=== PATIENT | male | born 1995 | race Caucasian/White ===

== ENCOUNTER 2017-11-19 09:37 | Emergency (ER) | payer BC ==
[2017-11-19] MEDS ORDERED: ONDANSETRON 4 MG/2 ML VIAL ONE (10:49)
[2017-11-19] MEDS ORDERED: NA CHLORIDE 0.9% 1,000 ML ONE (10:50)
[2017-11-19] MEDS ORDERED: ACETAMINOPHEN 500 MG TAB ONE (10:56)
[2017-11-19 11:19] LABS: Albumin 4.3 g/dL (3.4-5.0); Bilirubin Direct 0.3 mg/dL (0-0.2); Bilirubin Total 1.8 mg/dL (0.2-1.0); Potassium 4.2 mmol/L (3.5-5.1); Protein, Total 7.5 g/dL (6.4-8.2)
[2017-11-19 12:03] LABS: Absolute Lymphocytes (CBC) 0.5 K/uL (0.7-4.9); Absolute Monocytes 0.3 K/uL (0.1-1.3); Absolute Neutrophil 7.8 K/uL (1.8-8.0); Basophils % 1.8 % (0-1.3); Eosinophils % 0.3 % (0-4.4); Hematocrit 47.8 % (39.6-49.0); Lymphocytes % 5.6 % (15.3-44.8); MCH 32.9 pg (27.0-35.0); MCV 93.9 fL (80-100); MPV 8.1 fL (7.6-11.3); Monocytes % 3.8 % (3.3-12.3); RBC Red Blood Cell Count 5.09 M/uL (4.33-5.43)
--- NOTE | 2017-11-19 14:02 | RAD REPORT ---
EXAM DESCRIPTION: CT - Abdomen Pelvis W Contrast - 11/19/2017 1:32 pm CLINICAL HISTORY: Abdominal pain. Vomiting and diarrhea COMPARISON: None. TECHNIQUE: Computed axial tomography of the abdomen and pelvis was obtained. 100 cc Isovue-300 is ad ministered intravenously. Oral contrast was given. All CT scans are performed using dose optimization technique as appropriate and may include automated exposure control or mA/KV adjustment according to patient size. FINDINGS: Mild fatty infiltration liver suspected. Spleen, pancreas, adrenals and right kidney appear unremarkable. A 3 millimeter nonobstructing left renal calculus is seen. The appendix is normal caliber. There is no evidence of diverticulitis IMPRESSION: 3 millimeter nonobstructing left renal calculus
--- NOTE | 2017-11-19 14:30 | RAD REPORT ---
EXAM DESCRIPTION: US - Abdomen Exam Limited - 11/19/2017 2:08 pm CLINICAL HISTORY: Abdominal pain. COMPARISON: 11/19/2017 cat scan FINDINGS: The gallbladder wall is borderline thickened. A gallstone is not seen. The biliary tree is normal caliber. IMPRESSION: Borderline gallbladder wall thickening. This probably is normal for the patient. Hypoalb uminemia as well as mild acalculous cholecystitis can also result in this appearance
[2017-11-19] MEDS ORDERED: DIPHENOX/ATROP SULF 1 TAB PO ONE (15:01)
--- NOTE | 2017-11-19 15:02 | ER ---
Nurse's Notes [facility] Name: Con Harris Age: 22 yrs Sex: Male : 1995 Arrival Date: 11/19/2017 Time: 09:40 Bed 8 Private MD: Pedro Madrigal E Diagnosis: Vomiting;Diarrhea, unspecified;Dehydration Presentation: 11/19 10:14 Presenting complaint: Patient states: generalized abd pain and nausea/vomiting/diarrhea aa5 since last night. Pt reports congestion last night. Pt states "I had a fever of 100.7 F this morning", pt also reports body aches. Transition of care: patient was not received from another setting of care. Onset of symptoms was November 2017. Risk Assessment: Do you want to hurt yourself or someone else? Patient reports no desire to harm self or others. Initial Sepsis Screen: Does the patient meet any 2 criteria? No. Patient's initial sepsis screen is negative. Does the patient have a suspected source of infection? No. Patient's initial sepsis screen is negative. Care prior to arrival: None. 10:14 Method Of Arrival: Ambulatory aa5 10:14 Acuity: CHAYITO 3 aa5 Historical: - Allergies: 10:17 No Known Allergies; aa5 - PMHx: 10:17 None; aa5 - PSHx: 10:17 left testicle; left leg; aa5 - Immunization history:: Adult Immunizations up to date. - Social history:: Smoking status: Patient/guardian denies using tobacco. - Ebola Screening: : No symptoms or risks identified at this time. - Family history:: not pertinent. - Hospitalizations: : No recent hospitalization is reported. Screenin:46 Abuse screen: Denies threats or abuse. Nutritional screening: No deficits noted. la1 Tuberculosis screening: No symptoms or risk factors identified. Fall Risk None identified. Assessment: 10:45 General: Appears in no apparent distress. Behavior is calm, cooperative. Pain: la1 Complains of pain in right upper quadrant, right lower quadrant and left lower quadrant. Neuro: Level of Consciousness is awake, alert, obeys commands, Oriented to person, place, time, situation. Cardiovascular: Heart tones S1 S2 present Capillary refill < 3 seconds Patient's skin is warm and dry. GI: Bowel sounds present X 4 quads. Abd is soft and non tender X 4 quads. Reports diarrhea, nausea. : No signs and/or symptoms were reported regarding the genitourinary system. 12:09 Reassessment: Patient appears in no apparent distress at this time. No changes from la1 previously documented assessment. Patient and/or family updated on plan of care and expected duration. Pain level reassessed. 12:45 Reassessment: Patient appears in no apparent distress at this time. No changes from la1 previously documented assessment. Patient and/or family updated on plan of care and expected duration. Pain level reassessed. 14:13 Reassessment: Patient appears in no apparent distress at this time. No changes from la1 previously documented assessment. Patient and/or family updated on plan of care and expected duration. Pain level reassessed. Patient is alert, oriented x 3, equal unlabored respirations, skin warm/dry/pink. Vital Signs: 10:17 BP 118 / 65; Pulse 91; Resp 18 S; Temp 99.8(O); Pulse Ox 97% on R/A; Weight 85.73 kg aa5 (R); Height 5 ft. 10 in. (177.80 cm) (R); Pain 7/10; 12:22 BP 120 / 53; Pulse 84; Resp 18; Pulse Ox 98% on R/A; ph 14:13 BP 105 / 87; Pulse 81; Resp 16; Pulse Ox 98% on R/A; la1 15:19 BP 110 / 74; Pulse 84; Resp 16; Temp 97.2; Pulse Ox 100% on R/A; la1 10:17 Body Mass Index 27.12 (85.73 kg, 177.80 cm) aa5 ED Course: 09:40 Patient arrived in ED. as 09:41 Pedro Madrigal MD is Private Physician. as 10:14 Arm band placed on. aa5 10:16 Triage completed. aa5 10:32 Eligio Grider MD is Attending Physician. rn 10:41 Eric Branham RN is Primary Nurse. la1 10:46 Bed in low position. Call light in reach. la1 10:46 Inserted saline lock: 20 gauge in right antecubital area, using aseptic technique. la1 Blood collected. 13:28 CT completed. Patient moved to CT via wheelchair. Patient moved back from CT. cw1 13:32 CT Abd/Pelvis - W/Contrast In Process Unspecified. EDMS 14:02 Ultrasound completed. Patient tolerated well. sg3 14:08 US Abdomen Limited In Process Unspecified. EDMS 15:20 No provider procedures requiring assistance completed. IV discontinued, intact, la1 bleeding controlled, No redness/swelling at site. Pressure dressing applied. Administered Medications: 10:45 Drug: NS 0.9% 1000 ml Route: IV; Rate: 1000 ml; Site: right antecubital; la1 12:45 Follow up: IV Status: Completed infusion la1 10:45 Drug: Zofran 4 mg Route: IVP; Site: right antecubital; la1 12:45 Follow up: Response: No adverse reaction; Nausea is decreased la1 10:55 Drug: Tylenol 1000 mg Route: PO; la1 12:45 Follow up: Response: No adverse reaction la1 15:06 Drug: LoMOTIL 2 tabs Route: PO; la1 15:19 Follow up: Response: No adverse reaction la1 Outcome: 15:01 Discharge ordered by . rn 15:20 Patient left the ED. la1 Signatures: Dispatcher [employer] Leonie Boles Roman, MD MD rn Calderon, Audri RN RN Brianne Gilbert cw1 Eric Branham RN RN la1 Julienne Deras RN RN Sharri Payne sg3
--- NOTE | 2017-11-19 15:02 | EDPHYS ---
Physician Documentation [facility] Name: Con Harris Age: 22 yrs Sex: Male : 1995 Arrival Date: 11/19/2017 Time: 09:40 Bed 8 Private MD: Pedro Madrigal E ED Physician Eligio Grider HPI: 11/19 12:05 This 22 yrs old Male presents to ER via Ambulatory with complaints of Fever, rn Abdominal Pain. 12:05 The patient reports fever, not measured (subjective). Onset: The symptoms/episode rn began/occurred yesterday. Modifying factors: there are no obvious modifying factors. Associated signs and symptoms: Pertinent positives: abdominal pain, myalgias, nausea, vomiting. Severity of symptoms: At their worst the symptoms were moderate in the emergency department the symptoms are unchanged. The patient has not experienced similar symptoms in the past. The patient has not recently seen a physician. Reports fever, nausea/vomiting/diarrhea, diffuse abd cramps and pain, pain improves with bowel movements, + muscle aches, no sick contacts. Non bloody emesis or diarrhea. . Historical: - Allergies: 10:17 No Known Allergies; aa5 - PMHx: 10:17 None; aa5 - PSHx: 10:17 left testicle; left leg; aa5 - Immunization history:: Adult Immunizations up to date. - Social history:: Smoking status: Patient/guardian denies using tobacco. - Ebola Screening: : No symptoms or risks identified at this time. - Family history:: not pertinent. - Hospitalizations: : No recent hospitalization is reported. ROS: 12:05 Constitutional: Negative for chills, and weight loss, Eyes: Negative for injury, pain, rn redness, and discharge, Neck: Negative for injury, pain, and swelling, Cardiovascular: Negative for chest pain, palpitations, and edema, Respiratory: Negative for shortness of breath, cough, wheezing, and pleuritic chest pain, Abdomen/GI: + abd pain/nausea/vomiting/diarrhea MS/Extremity: Negative for injury and deformity, Skin: Negative for injury, rash, and discoloration, Neuro: Negative for headache, numbness, tingling, and seizure. Exam: 12:05 Constitutional: This is a well developed, well nourished patient who is awake, alert, rn and in no acute distress. Head/Face: Normocephalic, atraumatic. Eyes: Pupils equal round and reactive to light, extra-ocular motions intact. Lids and lashes normal. Conjunctiva and sclera are non-icteric and not injected. Cornea within normal limits. Periorbital areas with no swelling, redness, or edema. ENT: MMM Cardiovascular: Regular rate and rhythm with a normal S1 and S2. No gallops, murmurs, or rubs. Normal PMI, no JVD. No pulse deficits. Respiratory: Lungs have equal breath sounds bilaterally, clear to auscultation and percussion. No rales, rhonchi or wheezes noted. No increased work of breathing, no retractions or nasal flaring. Abdomen/GI: soft, mild tenderness right side of abdomen, no rebound/guarding MS/ Extremity: Pulses equal, no cyanosis. Neurovascular intact. Full, normal range of motion. Equal circumference. Neuro: Awake and alert, GCS 15, oriented to person, place, time, and situation. Cranial nerves II-XII grossly intact. Motor strength 5/5 in all extremities. Sensory grossly intact. Vital Signs: 10:17 BP 118 / 65; Pulse 91; Resp 18 S; Temp 99.8(O); Pulse Ox 97% on R/A; Weight 85.73 kg aa5 (R); Height 5 ft. 10 in. (177.80 cm) (R); Pain 7/10; 12:22 BP 120 / 53; Pulse 84; Resp 18; Pulse Ox 98% on R/A; ph 14:13 BP 105 / 87; Pulse 81; Resp 16; Pulse Ox 98% on R/A; la1 15:19 BP 110 / 74; Pulse 84; Resp 16; Temp 97.2; Pulse Ox 100% on R/A; la1 10:17 Body Mass Index 27.12 (85.73 kg, 177.80 cm) aa5 MDM: 10:32 Patient medically screened. rn 14:58 Differential diagnosis: viral Infection, bacterial infection, UTI, gastroenteritis. rn Data reviewed: vital signs, nurses notes, lab test result(s), radiologic studies, CT scan, ultrasound, and as a result, I will discharge patient. Counseling: I had a detailed discussion with the patient and/or guardian regarding: the historical points, exam findings, and any diagnostic results supporting the discharge/admit diagnosis, lab results, radiology results, the need for outpatient follow up, to return to the emergency department if symptoms worsen or persist or if there are any questions or concerns that arise at home. Response to treatment: the patient's symptoms have markedly improved after treatment, and as a result, I will discharge patient. Special discussion: Based on the patient's Hx, exam, and Dx evaluation, there is no indication for emergent surgery or inpatient Tx. It is understood by the patient/guardian that if the Sx's persist or worsen they need to return immediately for re-evaluation. I discussed with the patient/guardian in detail that at this point there is no indication for admission to the hospital. It is understood, however, that if the symptoms persist or worsen the patient needs to return immediately for re-evaluation. ED course: Pt feels much better, ambulating, no abd pain on reeval, u/s shows borderline thickening but no PCF/stones, no tenderness in gallbladder region, reported more intermittent vague diffuse cramps, symptoms most consistent with viral gastroenteritis, will dc home with return precautions, notified of gallbladder borderline finding and what to look for in case of coincidental gallbladder pathology. Elevated LFTs from fatty liver, normal WBC, no suspicious gallbladder findings on CT. . 11/19 10:21 Order name: Flu; Complete Time: 11:45 rn 11/19 10:33 Order name: Basic Metabolic Panel rn 11/19 10:33 Order name: CBC with Diff rn 11/19 10:33 Order name: Hepatic Function rn 11/19 10:33 Order name: Lipase rn 11/19 10:34 Order name: Basic Metabolic Panel; Complete Time: 11:45 EDMS 11/19 10:34 Order name: CBC with Automated Diff; Complete Time: 12:49 EDMS 11/19 10:34 Order name: Liver (Hepatic) Function; Complete Time: 11:45 EDMS 11/19 10:34 Order name: Lipase; Complete Time: 11:45 EDMS 11/19 11:47 Order name: CT Abd/Pelvis - W/Contrast; Complete Time: 14:33 rn 11/19 11:47 Order name: US Abdomen Limited; Complete Time: 14:33 rn 11/19 10:33 Order name: IV Saline Lock; Complete Time: 10:45 rn 10/06 10:33 Order name: Labs collected and sent; Complete Time: 10:45 rn Administered Medications: 10:45 Drug: NS 0.9% 1000 ml Route: IV; Rate: 1000 ml; Site: right antecubital; la1 12:45 Follow up: IV Status: Completed infusion la1 10:45 Drug: Zofran 4 mg Route: IVP; Site: right antecubital; la1 12:45 Follow up: Response: No adverse reaction; Nausea is decreased la1 10:55 Drug: Tylenol 1000 mg Route: PO; la1 12:45 Follow up: Response: No adverse reaction la1 15:06 Drug: LoMOTIL 2 tabs Route: PO; la1 15:19 Follow up: Response: No adverse reaction la1 Disposition: 11/19/17 15:01 Discharged to Home. Impression: Vomiting, Diarrhea, unspecified, Dehydration. - Condition is Stable. - Discharge Instructions: Diarrhea, Adult, Nausea and Vomiting, Adult. - Prescriptions for Zofran ODT 4 mg Oral tablet,disintegrating - place 1 tablet by TRANSLINGUAL route every 8 hours As needed; 20 tablet. - Medication Reconciliation Form, Thank You Letter, Antibiotic Education, Prescription Opioid Use, Work release form form. - Follow up: Private Physician; When: As needed; Reason: Recheck today's complaints, Re-evaluation by your physician. - Problem is new. - Symptoms have improved. Signatures: Dispatcher [employer] EDMS Eligio Grider MD MD rn Calderon, Audri, RN RN aa5 Eric Branham RN RN la1 Corrections: (The following items were deleted from the chart) 15:20 15:01 11/19/2017 15:01 Discharged to Home. Impression: Vomiting; Diarrhea, unspecified; la1 Dehydration. Condition is Stable. Forms are Medication Reconciliation Form, Thank You Letter, Antibiotic Education, Prescription Opioid Use. Follow up: Private Physician; When: As needed; Reason: Recheck today's complaints, Re-evaluation by your physician. Problem is new. Symptoms have improved. rn
[2017-11-19 15:27] VITALS: BP 110/74; TEMP 97.2; O2SAT 100
== END 2017-11-19 15:20 | disposition home or self-care (01) ==
LOC: ER 09:37
DX: E86.0 Dehydration (principal); R19.7 Diarrhea, unspecified
CPT/HCPCS: 36415; 74177; 76705; 80048; 80076; 83690; 85025; 87804; 96361; 96374; 99284; J2405; J7030; Q9967